=== PATIENT | female | born 1980 | race Caucasian/White ===

== ENCOUNTER → 2017-04-13 | Outpatient (CLI) | payer OTHER ==
[2017-04-13 10:39] LABS: PROGESTERONE 40.1 NG/ML
[2017-04-13 10:40] LABS: ESTRADIOL 187.3 PG/ML
== END ==
LOC: M LAB 09:35
PROVIDERS: ATTEND Obstetrics & Gynecology Reproductive Endocrinology
DX: N97.9 Female infertility, unspecified (principal)

== ENCOUNTER → 2017-04-21 | Outpatient (CLI) | payer OTHER ==
[2017-04-21 11:14] LABS: PROGESTERONE 42.3 NG/ML
[2017-04-21 11:22] LABS: ESTRADIOL 187.2 PG/ML
== END ==
LOC: M LAB 09:37
PROVIDERS: ATTEND Obstetrics & Gynecology Reproductive Endocrinology
DX: N97.9 Female infertility, unspecified (principal)

== ENCOUNTER → 2017-05-11 | Outpatient (REF) | payer OTHER | LOC: M LAB REF 14:17 | DX: J02.9 Acute pharyngitis, unspecified (principal) ==

== ENCOUNTER → 2017-06-17 | Outpatient (REF) | payer OTHER ==
[2017-06-17 17:25] LABS: HEMATOCRIT 40.8 % (36.0-47.0); MEAN CORPUSCULAR HEMOGLOBIN 29.1 pg (27.0-33.0); MEAN CORPUSCULAR HGB CONC 34.3 g/dl (32.0-36.5); MEAN CORPUSCULAR VOLUME 84.8 fl (80.0-96.0); PLATELET COUNT, AUTOMATED 285 10^3/uL (150-450); RED BLOOD COUNT 4.81 10^6/uL (4.00-5.40); RED CELL DISTRIBUTION WIDTH 13.3 % (11.5-14.5); WHITE BLOOD COUNT 10.5 10^3/uL (4.0-10.0)
[2017-06-17 19:05] LABS: HCG, SERUM QUANTITATIVE 45023 MIU/ML
[2017-06-18 10:19] LABS: RUBELLA IgG QUALITATIVE IMMUNE (IMMUNE)
[2017-06-18 10:49] LABS: HIV 1&2 SCREEN CENTAUR NEGATIVE (NEGATIVE)
[2017-06-18 11:00] LABS: HBsAg Prenatal NEGATIVE (NEGATIVE)
== END ==
LOC: M LAB REF 17:00
DX: O09.521 Supervision of elderly multigravida, first trimester (principal)

== ENCOUNTER → 2017-07-15 | Outpatient (REF) | payer OTHER ==
[2017-07-15 15:43] LABS: CHLAMYDIA DNA AMPLIFICATION NEGATIVE (NEGATIVE); GC DNA AMPLIFICATION NEGATIVE (NEGATIVE)
== END ==
LOC: M LAB REF 13:23
DX: O09.522 Supervision of elderly multigravida, second trimester (principal)

== ENCOUNTER → 2017-09-13 | Outpatient (REF) | payer OTHER | LOC: M LAB REF 12:52 | DX: Z34.82 Encounter for supervision of other normal pregnancy, second trimester (principal); Z3A.00 Weeks of gestation of pregnancy not specified | CPT/HCPCS: 87086 ==

== ENCOUNTER → 2017-12-07 | Outpatient (REF) | payer OTHER | LOC: M LAB REF 16:30 | DX: O09.513 Supervision of elderly primigravida, third trimester (principal) ==

== ENCOUNTER → 2019-07-31 | Outpatient (REF) | payer OTHER ==
[~2019-07-31] MED LIST: ACET1TAB55 PO; IBUP-1114 PO; MAPA500T2 PO; OMEP40CA97 PO; PRENTAB55 PO; TUMS500C PO; TUMS750C22 PO
[2019-07-31 10:39] LABS: BASO # 0.1 10^3/uL (0.0-0.2); BASO % 1.3 % (0.0-1.0); EOS # 0.3 10^3/uL (0.0-0.5); EOS % 5.5 % (0.0-3.0); HEMOGLOBIN 12.6 g/dl (12.0-15.5); LYMPH # 1.7 10^3/uL (1.5-5.0); LYMPH % 32.6 % (24.0-44.0); MEAN CORPUSCULAR HEMOGLOBIN 23.7 pg (27.0-33.0); MEAN CORPUSCULAR HGB CONC 30.7 g/dl (32.0-36.5); MEAN CORPUSCULAR VOLUME 77.2 fl (80.0-96.0); MONO # 0.5 10^3/uL (0.0-0.8); MONO % 9.6 % (0.0-5.0); NEUTROPHILS # 2.7 10^3/uL (1.5-8.5); NEUTROPHILS % 50.8 % (36.0-66.0); PLATELET COUNT, AUTOMATED 341 10^3/uL (150-450); RED BLOOD COUNT 5.31 10^6/uL (4.00-5.40); WHITE BLOOD COUNT 5.3 10^3/uL (4.0-10.0)
[2019-07-31 11:07] LABS: ALBUMIN 3.4 GM/DL (3.2-5.2); ALT/SGPT 15 U/L (12-78); BILIRUBIN,TOTAL 0.3 MG/DL (0.2-1.0); BLOOD UREA NITROGEN 9 MG/DL (7-18); CALCIUM LEVEL 9.3 MG/DL (8.5-10.1); CARBON DIOXIDE LEVEL 26 MEQ/L (21-32); CHLORIDE LEVEL 106 MEQ/L (98-107); CREATININE FOR GFR 0.67 MG/DL (0.55-1.30); FREE T4 0.95 NG/DL (0.76-1.46); GLOMERULAR FILTRATION RATE > 60.0 (>58); GLUCOSE, FASTING 94 MG/DL (70-100); POTASSIUM SERUM 4.2 MEQ/L (3.5-5.1); SODIUM LEVEL 138 MEQ/L (136-145); THYROID PEROXIDASE ANTIBODY 37.6 U/ML (<60.0); TOTAL 25(OH) VITAMIN D 33.1 NG/ML (30.0-100.0); TOTAL PROTEIN 7.5 GM/DL (6.4-8.2)
== END ==
LOC: M LABDRAW1 08:32
PROVIDERS: ATTEND Physician Assistant
DX: E03.9 Hypothyroidism, unspecified (principal)

== ENCOUNTER 2019-09-29 13:06 | Emergency (ER) | payer OTHER ==
[~2019-09-29] VITALS: Ht 162.6 cm; Wt 94.8 kg
[2019-09-29] MEDS ORDERED: VITA50005 PO (13:15)
[2019-09-29] MEDS ORDERED: FLUTISP (13:15)
[2019-09-29] MEDS ORDERED: LEVO50TA5 PO (13:15)
[2019-09-29] MEDS ORDERED: CETI-24 PO (13:15)
[2019-09-29] MEDS ORDERED: BUSP10TA PO (13:15)
[2019-09-29] MEDS ORDERED: AMOX500T PO (13:15)
[2019-09-29] MEDS ORDERED: diphenhydrAMINE 50MG/ML VIAL (J1200) IV ONE (14:00)
[2019-09-29] MEDS ORDERED: NS 1,000 ML IV ONE (14:00)
[2019-09-29] MEDS ORDERED: KETOROLAC 30 MG/ML 1ML VIAL IV ONE (14:00)
[2019-09-29] MEDS ORDERED: METOCLOPRAMIDE INJ 10MG/2ML VIAL (J2765 PER 1) IV ONE (14:00)
[2019-09-29 14:29] LABS: BASO # 0.1 10^3/uL (0.0-0.2); BASO % 1.5 % (0.0-1.0); EOS # 0.3 10^3/uL (0.0-0.5); EOS % 4.9 % (0.0-3.0); HEMATOCRIT 34.8 % (36.0-47.0); HEMOGLOBIN 10.8 g/dl (12.0-15.5); MEAN CORPUSCULAR HEMOGLOBIN 24.1 pg (27.0-33.0); MEAN CORPUSCULAR VOLUME 77.5 fl (80.0-96.0); MONO # 0.7 10^3/uL (0.0-0.8); MONO % 11.9 % (0.0-5.0); NEUTROPHILS # 2.5 10^3/uL (1.5-8.5); NEUTROPHILS % 45.5 % (36.0-66.0); PLATELET COUNT, AUTOMATED 315 10^3/uL (150-450); RED BLOOD COUNT 4.49 10^6/uL (4.00-5.40); WHITE BLOOD COUNT 5.5 10^3/uL (4.0-10.0)
[2019-09-29 14:57] LABS: BLOOD UREA NITROGEN 9 MG/DL (7-18); C REACTIVE PROTEIN QUANTITATIV 0.37 MG/DL (0.00-0.30); CALCIUM LEVEL 9.4 MG/DL (8.5-10.1); CARBON DIOXIDE LEVEL 26 MEQ/L (21-32); CHLORIDE LEVEL 108 MEQ/L (98-107); CREATININE FOR GFR 0.67 MG/DL (0.55-1.30); GLOMERULAR FILTRATION RATE > 60.0 (>58); GLUCOSE, FASTING 79 MG/DL (70-100); POTASSIUM SERUM 4.1 MEQ/L (3.5-5.1); SODIUM LEVEL 138 MEQ/L (136-145)
[2019-09-29 15:02] LABS: ERYTHROCYTE SEDIMENTATION RATE 36 mm/hr (0-20)
[2019-09-29 17:56] VITALS: BP 145/51
--- NOTE | 2019-09-30 00:13 | ECGEPIP ---
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
--- NOTE | 2019-09-30 10:34 | REP ---
CT BRAIN WITHOUT CONTRAST: REASON: Headache lasting 10 days with increasing severity. No priors. TECHNIQUE: 4.5 mm contiguous transaxial sections were obtained from the skull base to the cerebral convexities with thin cuts through the posterior fossa without the administration of intravenous contrast. FINDINGS: The ventricles and sulci are consistent with the patient's age. There are no extra-axial fluid collections. There is no mass effect. The deep cerebral white matter is consistent with the patient's age. The orbital and petrous structures, cerebellopontine angles, and posterior fossa are unremarkable. The sella turcica, cavernous, and paracavernous structures are essentially unremarkable. The visualized portions of the paranasal sinuses and mastoid air cells are clear. Images of the skull base show no gross abnormality. IMPRESSION: Essentially unremarkable CT examination of the brain. Electronically Signed by Marcial Johnson DO 10/02/2019 10:09 A
== END 2019-09-29 18:02 | disposition home or self-care (01) ==
LOC: M ED 13:06
DX: G43.909 Migraine, unspecified, not intractable, without status migrainosus (principal); Z79.899 Other long term (current) drug therapy
CPT/HCPCS: 70450; 80048; 84702; 85025; 85652; 86140; 93005; 96361; 96374; 96375; 99284; J1200; J1885; J2765

== ENCOUNTER → 2019-10-25 | Outpatient (CLI) | payer OTHER ==
[~2019-10-25] MED LIST changes: +AMOX500T PO; +BUSP10TA PO; +CETI-24 PO; +FLUTISP; +LEVO50TA5 PO; +VITA50005 PO
[2019-10-25 08:53] LABS: BASO # 0.1 10^3/uL (0.0-0.2); EOS # 0.3 10^3/uL (0.0-0.5); EOS % 5.2 % (0.0-3.0); HEMATOCRIT 37.8 % (36.0-47.0); HEMOGLOBIN 11.7 g/dl (12.0-15.5); MEAN CORPUSCULAR HEMOGLOBIN 24.2 pg (27.0-33.0); MEAN CORPUSCULAR VOLUME 78.1 fl (80.0-96.0); MONO # 0.6 10^3/uL (0.0-0.8); NEUTROPHILS # 2.3 10^3/uL (1.5-8.5); NEUTROPHILS % 43.4 % (36.0-66.0); PLATELET COUNT, AUTOMATED 315 10^3/uL (150-450); RED BLOOD COUNT 4.84 10^6/uL (4.00-5.40); WHITE BLOOD COUNT 5.2 10^3/uL (4.0-10.0)
[2019-10-25 10:04] LABS: BLOOD UREA NITROGEN 10 MG/DL (7-18); CALCIUM LEVEL 9.6 MG/DL (8.5-10.1); CARBON DIOXIDE LEVEL 27 MEQ/L (21-32); CHLORIDE LEVEL 107 MEQ/L (98-107); CHOLESTEROL LEVEL 232 MG/DL (<200); CHOLESTEROL RISK RATIO 4.734 (<5); CREATININE FOR GFR 0.65 MG/DL (0.55-1.30); FREE T4 1.04 NG/DL (0.76-1.46); GLOMERULAR FILTRATION RATE > 60.0 (>58); GLUCOSE, FASTING 92 MG/DL (70-100); HDL CHOLESTEROL 49 MG/DL (>40); LDL CHOLESTEROL 144 MG/DL (<100); NON-HDL-C 183 MG/DL; POTASSIUM SERUM 4.4 MEQ/L (3.5-5.1); SODIUM LEVEL 140 MEQ/L (136-145); THYROID STIMULATING HORMONE 0.695 uIU/ML (0.358-3.740); TOTAL 25(OH) VITAMIN D 58.2 NG/ML (30.0-100.0); TRIGLYCERIDES LEVEL 194 MG/DL (<150)
== END ==
LOC: M LAB 08:18
PROVIDERS: ATTEND Physician Assistant
DX: E03.9 Hypothyroidism, unspecified (principal); Z13.220 Encounter for screening for lipoid disorders

== ENCOUNTER → 2020-07-10 | Outpatient (CLI) | payer OTHER ==
[2020-07-10 14:39] LABS: ALBUMIN 3.4 GM/DL (3.2-5.2); ALT/SGPT 21 U/L (12-78); BILIRUBIN,TOTAL 0.4 MG/DL (0.2-1.0); BLOOD UREA NITROGEN 7 MG/DL (7-18); CALCIUM LEVEL 9.6 MG/DL (8.5-10.1); CARBON DIOXIDE LEVEL 27 MEQ/L (21-32); CHLORIDE LEVEL 107 MEQ/L (98-107); CHOLESTEROL LEVEL 190 MG/DL (<200); CHOLESTEROL RISK RATIO 4.318 (<5); CREATININE FOR GFR 0.71 MG/DL (0.55-1.30); FREE T4 0.95 NG/DL (0.76-1.46); GLOMERULAR FILTRATION RATE > 60.0 (>58); GLUCOSE, FASTING 92 MG/DL (70-100); HDL CHOLESTEROL 44 MG/DL (>40); LDL CHOLESTEROL 95 MG/DL (<100); NON-HDL-C 146 MG/DL; POTASSIUM SERUM 4.1 MEQ/L (3.5-5.1); SODIUM LEVEL 138 MEQ/L (136-145); TOTAL PROTEIN 7.4 GM/DL (6.4-8.2); TRIGLYCERIDES LEVEL 254 MG/DL (<150)
[2020-07-10 14:42] LABS: TOTAL 25(OH) VITAMIN D 23.9 NG/ML (30.0-100.0)
[2020-07-10 15:53] LABS: BASO # 0.1 10^3/uL (0.0-0.2); BASO % 1.1 % (0.0-1.0); EOS # 0.2 10^3/uL (0.0-0.5); EOS % 3.2 % (0.0-3.0); HEMATOCRIT 43.2 % (36.0-47.0); HEMOGLOBIN 13.9 g/dl (12.0-15.5); LYMPH % 30.3 % (24.0-44.0); MEAN CORPUSCULAR HEMOGLOBIN 27.1 pg (27.0-33.0); MEAN CORPUSCULAR HGB CONC 32.2 g/dl (32.0-36.5); MEAN CORPUSCULAR VOLUME 84.4 fl (80.0-96.0); MONO # 0.7 10^3/uL (0.0-0.8); MONO % 10.6 % (2.0-8.0); NEUTROPHILS # 3.6 10^3/uL (1.5-8.5); NEUTROPHILS % 54.5 % (36.0-66.0); PLATELET COUNT, AUTOMATED 281 10^3/uL (150-450); RED BLOOD COUNT 5.12 10^6/uL (4.00-5.40); WHITE BLOOD COUNT 6.6 10^3/uL (4.0-10.0)
== END ==
LOC: M PLALAB 09:27
PROVIDERS: ATTEND Physician Assistant
DX: E03.9 Hypothyroidism, unspecified (principal); E78.2 Mixed hyperlipidemia

== ENCOUNTER → 2020-08-02 | Outpatient (CLI) | payer OTHER ==
--- NOTE | 2020-08-02 10:06 | REPMRS ---
Patient History The patient states she had a clinical breast exam in July 2020. Family history of breast cancer at age 50 or over in maternal aunt. 3D TOMOSYNTHESIS WAS PERFORMED. [facility] lifetime risk for breast cancer is 13.2%. Volpara breast density b. Digital Woman Screen Mammo: August 02, 2020 - Exam #: [id number] Bilateral CC and MLO view(s) were taken. Technologist: Maryellen Garner, RT No prior studies available for comparison. FINDINGS: There are scattered fibroglandular densities. There is a mild amount of residual fibroglandular tissue which is fairly symmetric. There is no dominant mass, architectural distortion, or clustered microcalcification suggestive of malignancy. Assessment: BI-RADS/ACR category 1 mammogram. Negative Mammogram. Recommendation Routine screening mammogram in 1 year (for women over age 40). This mammogram was interpreted with the aid of an FDA-approved computer-aided dectection system. Electronically Signed By: Sonido Heredia MD 08/02/20 [id number]
== END ==
LOC: M WHC 09:06
PROVIDERS: ATTEND Family Medicine
DX: Z12.31 Encounter for screening mammogram for malignant neoplasm of breast (principal)

== ENCOUNTER → 2021-03-10 | Outpatient (CLI) | payer OTHER ==
[~2021-03-10] MED LIST changes: +ERGO500029 PO; +OMEP40CA4 PO; -OMEP40CA97 PO; -VITA50005 PO
[2021-03-10 11:29] LABS: BASO # 0.1 10^3/uL (0.0-0.2); BASO % 1.5 % (0.0-1.0); EOS # 0.3 10^3/uL (0.0-0.5); EOS % 5.2 % (0.0-3.0); HEMOGLOBIN 14.2 g/dl (12.0-15.5); LYMPH # 1.6 10^3/uL (1.5-5.0); MEAN CORPUSCULAR HGB CONC 33.8 g/dl (32.0-36.5); MEAN CORPUSCULAR VOLUME 85.7 fl (80.0-96.0); MONO # 0.5 10^3/uL (0.0-0.8); MONO % 10.8 % (2.0-8.0); NEUTROPHILS # 2.3 10^3/uL (1.5-8.5); NEUTROPHILS % 48.3 % (36.0-66.0); PLATELET COUNT, AUTOMATED 320 10^3/uL (150-450); WHITE BLOOD COUNT 4.8 10^3/uL (4.0-10.0)
[2021-03-10 12:26] LABS: ALBUMIN 3.7 GM/DL (3.2-5.2); ALT/SGPT 29 U/L (12-78); BILIRUBIN,TOTAL 0.5 MG/DL (0.2-1.0); BLOOD UREA NITROGEN 8 MG/DL (7-18); CALCIUM LEVEL 10.1 MG/DL (8.5-10.1); CARBON DIOXIDE LEVEL 25 MEQ/L (21-32); CHLORIDE LEVEL 108 MEQ/L (98-107); CHOLESTEROL LEVEL 168 MG/DL (<200); CHOLESTEROL RISK RATIO 2.896 (<5); FREE T4 1.31 NG/DL (0.76-1.46); GLOMERULAR FILTRATION RATE > 60.0 (>58); GLUCOSE, FASTING 91 MG/DL (70-100); HDL CHOLESTEROL 58 MG/DL (>40); LDL CHOLESTEROL 90 MG/DL (<100); NON-HDL-C 110 MG/DL; POTASSIUM SERUM 4.6 MEQ/L (3.5-5.1); SODIUM LEVEL 138 MEQ/L (136-145); TOTAL 25(OH) VITAMIN D 44.4 NG/ML (30.0-100.0); TOTAL PROTEIN 7.4 GM/DL (6.4-8.2); TRIGLYCERIDES LEVEL 100 MG/DL (<150)
== END ==
LOC: M PLALAB 08:35
PROVIDERS: ATTEND Physician Assistant
DX: E03.9 Hypothyroidism, unspecified (principal); E78.2 Mixed hyperlipidemia; E55.9 Vitamin D deficiency, unspecified

== ENCOUNTER → 2021-09-11 | Outpatient (REF) | payer OTHER ==
[2021-09-11 13:23] LABS: HEMATOCRIT 39.6 % (36.0-47.0); HEMOGLOBIN 13.4 g/dl (12.0-15.5); MEAN CORPUSCULAR HEMOGLOBIN 29.1 pg (27.0-33.0); MEAN CORPUSCULAR HGB CONC 33.8 g/dl (32.0-36.5); MEAN CORPUSCULAR VOLUME 85.9 fl (80.0-96.0); PLATELET COUNT, AUTOMATED 273 10^3/uL (150-450); RED BLOOD COUNT 4.61 10^6/uL (4.00-5.40); WHITE BLOOD COUNT 7.7 10^3/uL (4.0-10.0)
[2021-09-11 14:12] LABS: HCG, SERUM QUANTITATIVE 39027 MIU/ML; HEPATITIS B SURFACE ANTIGEN NEGATIVE (NEGATIVE); THYROXINE (T4) 11.2 UG/DL (4.5-12.0)
[2021-09-11 14:39] LABS: HEPATITIS C VIRUS ABY INDEX 0.1 INDEX (<0.8); HIV 1&2 SCREEN CENTAUR NEGATIVE (NEGATIVE)
== END ==
LOC: M LAB REF 12:08
PROVIDERS: ATTEND Advanced Practice Midwife
DX: O36.80X0 Pregnancy with inconclusive fetal viability, not applicable or unspecified (principal); Z32.01 Encounter for pregnancy test, result positive

== ENCOUNTER → 2022-01-22 | Outpatient (CLI) | payer OTHER ==
[2022-01-22 09:41] LABS: BASO # 0.1 10^3/uL (0.0-0.2); BASO % 0.9 % (0.0-1.0); EOS # 0.2 10^3/uL (0.0-0.5); EOS % 1.9 % (0.0-3.0); HEMATOCRIT 33.8 % (36.0-47.0); HEMOGLOBIN 10.7 g/dl (12.0-15.5); LYMPH # 1.3 10^3/uL (1.5-5.0); LYMPH % 16.4 % (24.0-44.0); MEAN CORPUSCULAR HEMOGLOBIN 26.2 pg (27.0-33.0); MEAN CORPUSCULAR HGB CONC 31.7 g/dl (32.0-36.5); MEAN CORPUSCULAR VOLUME 82.8 fl (80.0-96.0); MONO # 0.6 10^3/uL (0.0-0.8); MONO % 7.3 % (2.0-8.0); NEUTROPHILS # 5.6 10^3/uL (1.5-8.5); PLATELET COUNT, AUTOMATED 247 10^3/uL (150-450); RED BLOOD COUNT 4.08 10^6/uL (4.00-5.40); WHITE BLOOD COUNT 7.8 10^3/uL (4.0-10.0)
== END ==
LOC: M LAB 07:53
PROVIDERS: ATTEND Obstetrics & Gynecology
DX: Z34.82 Encounter for supervision of other normal pregnancy, second trimester (principal)

== ENCOUNTER → 2022-03-04 | Outpatient (REF) | payer OTHER | LOC: M LAB REF 11:50 | PROVIDERS: ATTEND Obstetrics & Gynecology | DX: Z34.83 Encounter for supervision of other normal pregnancy, third trimester (principal) ==

== ENCOUNTER → 2022-03-31 | Outpatient (CLI) | payer OTHER | LOC: M WHC 12:38 | PROVIDERS: ATTEND Obstetrics & Gynecology | DX: O32.0XX0 Maternal care for unstable lie, not applicable or unspecified (principal); Z3A.38 38 weeks gestation of pregnancy ==

== ENCOUNTER → 2023-01-01 | Outpatient (REF) | payer OTHER ==
[~2023-01-01] MED LIST changes: +FLUT50SP17; -FLUTISP
[2023-01-01 13:17] LABS: BASO # 0.1 10^3/uL (0.0-0.2); BASO % 1.4 % (0.0-1.0); EOS # 0.6 10^3/uL (0.0-0.5); EOS % 9.2 % (0.0-3.0); HEMATOCRIT 42.2 % (36.0-47.0); LYMPH # 1.8 10^3/uL (1.5-5.0); LYMPH % 28.5 % (24.0-44.0); MEAN CORPUSCULAR HEMOGLOBIN 28.9 pg (27.0-33.0); MEAN CORPUSCULAR HGB CONC 33.2 g/dl (32.0-36.5); MONO # 0.6 10^3/uL (0.0-0.8); MONO % 9.8 % (2.0-8.0); NEUTROPHILS # 3.2 10^3/uL (1.5-8.5); NEUTROPHILS % 50.8 % (36.0-66.0); PLATELET COUNT, AUTOMATED 261 10^3/uL (150-450); RED BLOOD COUNT 4.85 10^6/uL (4.00-5.40); WHITE BLOOD COUNT 6.2 10^3/uL (4.0-10.0)
[2023-01-01 13:29] LABS: ALBUMIN 3.5 G/DL (3.2-5.2); ALKALINE PHOSPHATASE 113 U/L (46-116); ALT/SGPT 16 U/L (7.0-40); AST/SGOT < 8 U/L (<34); BILIRUBIN,TOTAL 0.5 MG/DL (0.3-1.2); BLOOD UREA NITROGEN 8 MG/DL (9-23); CALCIUM LEVEL 9.6 MG/DL (8.5-10.1); CARBON DIOXIDE LEVEL 26 MMOL/L (20-31); CHLORIDE LEVEL 107 MMOL/L (98-107); CHOLESTEROL LEVEL 192 MG/DL (<200); CHOLESTEROL RISK RATIO 3.65 (<5); CREATININE FOR GFR 0.61 MG/DL (0.55-1.30); GLOMERULAR FILTRATION RATE > 60.0 (>58); GLUCOSE, FASTING 86 MG/DL (60-100); HDL CHOLESTEROL 52.6 MG/DL (>40); LDL CHOLESTEROL 117.6 MG/DL (<100); NON-HDL-C 139.4 MG/DL; POTASSIUM SERUM 4.3 MMOL/L (3.5-5.1); SODIUM LEVEL 140 MMOL/L (136-145); TOTAL PROTEIN 6.9 G/DL (5.7-8.2); TRIGLYCERIDES LEVEL 109 MG/DL (<150)
[2023-01-01 13:31] LABS: FREE T4 0.83 NG/DL (0.89-1.76); THYROID STIMULATING HORMONE 2.314 uIU/ML (0.55-4.78)
== END ==
LOC: M LABWUC 12:27
PROVIDERS: ATTEND Nurse Practitioner Adult Health
DX: E78.2 Mixed hyperlipidemia (principal); E03.9 Hypothyroidism, unspecified

== ENCOUNTER → 2023-04-08 | Outpatient (REF) | payer OTHER ==
[~2023-04-08] MED LIST changes: -FLUT50SP17; +FLUTISP
== END ==
LOC: M LAB REF 16:48
PROVIDERS: ATTEND Nurse Practitioner Adult Health
DX: R30.0 Dysuria (principal)

== ENCOUNTER → 2023-06-01 | Outpatient (REF) | payer OTHER ==
[2023-06-01 18:02] LABS: CORTISOL PM 6.7 UG/DL (3.1-16.7)
[2023-06-01 18:06] LABS: FOLLICLE STIMULATING HORMONE 12.5 mIU/ML; LUTEINIZING HORMONE 8.1 mIU/ML
[2023-06-01 18:11] LABS: PROGESTERONE 0.39 NG/ML
== END ==
LOC: M LAB REF 16:29
PROVIDERS: ATTEND Obstetrics & Gynecology
DX: N95.1 Menopausal and female climacteric states (principal)

== ENCOUNTER 2023-09-14 14:42 | Outpatient (CLI) | payer OTHER ==
[2023-09-14 14:55] VITALS: BP 150/98; O2SAT 97
[2023-09-14] MEDS: FERRIC CARBOXYMALTOSE INJ 750 MG in NS 250 ML (>50kg) IV ONE (14:55)
[2023-09-14 15:50] VITALS: BP 153/86; O2SAT 99
== END 2023-09-14 15:50 | disposition home or self-care (01) ==
LOC: M INFU 14:42
PROVIDERS: ATTEND Family Medicine
DX: D50.9 Iron deficiency anemia, unspecified (principal)
CPT/HCPCS: 96365; J1439

== ENCOUNTER 2023-09-21 15:40 | Outpatient (CLI) | payer OTHER ==
[2023-09-21] MEDS: FERRIC CARBOXYMALTOSE INJ 750 MG in NS 250 ML (>50kg) IV ONE (15:46)
[2023-09-21 15:58] VITALS: BP 142/90; O2SAT 98
[2023-09-21 16:21] VITALS: BP 132/80; O2SAT 99
== END 2023-09-21 16:21 | disposition home or self-care (01) ==
LOC: M INFU 15:40
PROVIDERS: ATTEND Family Medicine
DX: D50.9 Iron deficiency anemia, unspecified (principal)
CPT/HCPCS: 96365; J1439

== ENCOUNTER → 2024-03-07 | Outpatient (CLI) | payer OTHER | LOC: M WHC 15:09 | PROVIDERS: ATTEND Family Medicine | DX: Z12.31 Encounter for screening mammogram for malignant neoplasm of breast (principal); R92.313 Mammographic fatty tissue density, bilateral breasts ==